=== PATIENT | female | born 1955 | race Caucasian/White ===

== ENCOUNTER 2019-01-11 12:00 | Inpatient (IN) | payer MEDICARE, BC ==
[~2019-01-11] VITALS: Ht 165.1 cm; Wt 68.3 kg
[~2019-01-11 12:00] MED LIST: ASPI-903 PO; SIMV20TA20 ORAL
[2019-01-25] VITALS (17 sets, daily range): BP systolic 129–165; BP diastolic 61–81; PULSE 65–99; RESP 11–19; Ht 165.1 cm; Wt 68.3 kg
[2019-01-25] MEDS ORDERED: LACTATED RINGER'S 1,000 ML IV SCH (06:00)
[2019-01-25] MEDS ORDERED: CEFAZOLIN 2 GM/50 ML (PMX) 50 ML IVPB SCH (06:00)
--- NOTE | 2019-01-25 11:51 | PREAC ---
Date/Time of Note Date/Time of Note DATE: 01/25/19 TIME: 11:50 Anesthesia Eval and Record Evaluation Time Pre-Procedure Interview DATE: 01/25/19 TIME: 11:50 Age 63 Sex female NPO: 8 hrs Preoperative diagnosis cervical ddd Planned procedure c4-7 ACDF Past Medical History Past Medical History: Includes Cardio: Dyslipidemia Surgery & Anesthesia Issues No known issue Meds Anticoagulation: No Beta Luiz within 24 hr: No Reason Beta Luiz not given: Pt. not on B-Luiz Reported Medications Aspirin* (Aspirin* Chew) 81 Mg Tab.chew, 81 MG PO DAILY, TAB.CHEW 01/25/19 Simvastatin (Simvastatin) 20 Mg Tablet, 1 TAB ORAL QHS 01/25/19 Current Medications Lactated Ringer's 1,000 ml @ 0 mls/hr Q0M IV ; Start 01/25/19 at 06:00; Stop 01/25/19 at 19:00 Cefazolin Sodium/ Dextrose 50 ml @ 100 mls/hr PREOP IVPB ; Start 01/25/19 at 06:00; Stop 01/25/19 at 19:00 Meds reviewed: Yes Allergies Coded Allergies: iodine (Verified Allergy, Mild, HIVES, 01/25/19) Sulfa (Sulfonamide Antibiotics) (Verified Allergy, Unknown, HIVES, 01/25/19) Allergies Reviewed: Yes Labs/Studies Labs Reviewed: Reviewed by anesthesiologist test: Negative Studies: ECG Pre-procedure Exam Last vitals Vital Signs Date Temp Pulse Resp B/P (MAP) Pulse Ox O2 O2 Flow FiO2 Time Delivery Rate 01/25/19 98.3 73 18 156/74 96 Room Air 11:17 (101) Airway: Adequate mouth opening, Adequate thyromental dist Mallampati: Mallampati II Teeth: Normal Lung: Normal Heart: Normal ASA Physical Status ASA physical status: 2 Emergency: None Planned Anesthetic General/MAC: ETT, A Line Pre-operative Attestations Prior to commencing anesthesia and surgery, the patient was re-evaluated, there was verification of: *The patient's identity *The results of appropriate recent lab work and preoperative vital signs *The above evaluation not changing prior to induction *Anesthetic plan, risk benefits, alternative and complications discussed with patient/family; questions answered; patient/family understands, accepts and wishes to proceed. DOMINGO ALSTON Jan 25, 2019 11:51
[2019-01-25] MEDS ORDERED: ALBUTEROL 0.083% (NEB) 2.5 MG/3 ML AMP HHN PRN (12:00)
[2019-01-25] MEDS ORDERED: DIPHENHYDRAMINE 50 MG INJ IV PRN ×2 (12:00→12:30)
[2019-01-25] MEDS ORDERED: FENTAnyl 50 MCG/ML VIAL IV PRN ×2 (12:00)
[2019-01-25] MEDS ORDERED: MEPERIDINE 25 MG INJ IV PRN (12:00)
[2019-01-25] MEDS ORDERED: METOCLOPRAMIDE 10 MG INJ IV PRN (12:00)
[2019-01-25] MEDS ORDERED: ONDANSETRON 4 MG INJ IV PRN (12:00)
[2019-01-25] MEDS ORDERED: HYDROmorphONE 1 MG/5 ML IV SYRINGE IV PRN ×3 (12:00)
[2019-01-25] MEDS ORDERED: GLYCOPYRROLATE 0.4 MG INJ ONE (12:00)
[2019-01-25] MEDS ORDERED: GELATIN SIZE 100 SPONGE ONE (12:17)
[2019-01-25] MEDS ORDERED: POLYMYXIN/BACITRACIN 1L IRRIG ONE (12:17)
[2019-01-25] MEDS ORDERED: BUPIVACAINE 0.25%/EPI (SDV) 30 ML INJ ONE (12:18)
[2019-01-25] MEDS ORDERED: THROMBIN 5000 UNIT (RECOTHROM) VIAL ONE (12:18)
--- NOTE | 2019-01-25 12:21 | HPN ---
Date/Time of Note Date/Time of Note DATE: 01/25/19 TIME: 12:20 Interval H&P Admission Note Pt. seen H&P reviewed: No system changes LUIS MANUEL AGEE PA-C Jan 25, 2019 12:21
[2019-01-25] MEDS ORDERED: DIPHENHYDRAMINE 25 MG CAP PO PRN (12:30)
[2019-01-25] MEDS: CEFAZOLIN 1 GM/50 ML (PMX) 50 ML IVPB SCH ×2 (12:30→20:17)
[2019-01-25] MEDS ORDERED: ACETAMINOPHEN 325 MG TAB PO PRN (12:30)
[2019-01-25] MEDS ORDERED: HYDROCODONE/APAP (5/325) TAB PO PRN (12:30)
[2019-01-25] MEDS ORDERED: HYDROmorphONE 0.2 MG/ML PCA IV SCH (12:30)
[2019-01-25] MEDS ORDERED: NALOXONE (0.4 MG/ML) INJ IV PRN (12:30)
[2019-01-25] MEDS ORDERED: CYCLOBENZAPRINE 10 MG TAB PO PRN (12:30)
[2019-01-25] MEDS ORDERED: BISACODYL 10 MG SUPP PR PRN (12:30)
[2019-01-25] MEDS ORDERED: CEPASTAT LOZENGE MT PRN (12:30)
[2019-01-25] MEDS ORDERED: AL HYDROX/MG HYDROX/SIMETH 30 ML CUP PO PRN (12:30)
[2019-01-25] MEDS ORDERED: HYDROmorphONE 0.5 MG/0.5 ML SYG IV PRN (12:30)
[2019-01-25] MEDS ORDERED: FENTAnyl 50 MCG/ML VIAL ONE ×2 (12:40→13:41)
[2019-01-25] MEDS ORDERED: PROPOFOL 20 ML ONE (16:12)
[2019-01-25] MEDS ORDERED: LIDOCAINE 100 MG SYRINGE ONE (16:12)
[2019-01-25] MEDS ORDERED: ROCURONIUM 50 MG INJ ONE (16:12)
[2019-01-25] MEDS ORDERED: SUCCINYLCHOLINE CHLORIDE 100 MG/5 ML SYG IV ONE (16:12)
[2019-01-25] MEDS ORDERED: SUGAMMADEX SODIUM 200 MG/2 ML VIAL IV ONE ×2 (16:12→16:19)
[2019-01-25] MEDS ORDERED: CEFAZOLIN 1 GM INJ ONE (16:12)
--- NOTE | 2019-01-25 16:43 | SIPON ---
Date/Time of Note Date/Time of Note DATE: 01/25/19 TIME: 16:42 Operative Report Preoperative Diagnosis cervical stenosis Postoperative Diagnosis cervical stenosis Operation/Procedure Performed cervical fusion Surgeon see signature line sales service assistant oral Anesthesia: general Estimated blood loss: 50 - 100 ml's Transfusion Required none Specimen disk Grafts/Implants cage and plate Complications none DANIELA TRENT MD Jan 25, 2019 16:43
[2019-01-25] MEDS: D5W-0.45 NACL + KCL 20 MEQ 1,000 ML IV SCH ×2 (18:10→21:45)
--- NOTE | 2019-01-25 18:55 | CONS ---
DATE OF ADMISSION: 01/25/2019 DATE OF CONSULTATION: 01/25/2019 TYPE OF CONSULTATION: Postoperative medical. Thank you very much for allowing me to evaluate this 63-year-old female who just underwent cervical s pine surgery. HISTORICAL EVENTS: As you well know, this patient had a chronic history of neck pain that has been m arkedly worsening and because of continued pain and failure of conservative therapy to allow any reli ef, she elected to proceed with surgery. In recovery, she notes some shoulder pain without substerna l chest discomfort, shortness of breath, nausea, vomiting, abdominal or chest pain. PAST MEDICAL HISTORY: 1. Revealed an old ischemic cerebral infarct as noted by MRI imaging. Carotid ultrasound was normal , undergoing neurologic evaluation preoperatively. 2. History of retinal detachment. 3. Carpal tunnel syndrome. 4. Hyperlipidemia. 5. Total abdominal hysterectomy. ALLERGIES INCLUDE: 1. IODINE. 2. SULFA. CURRENT MEDICATIONS PRIOR TO ADMISSION: 1. Aspirin. 2. Simvastatin. PHYSICAL EXAMINATION: GENERAL: [place] female in no acute distress. VITAL SIGNS: BP 128/80, pulse 72, respirations were 18. She was afebrile. HEENT: Eyes: Extraocular muscles were full. Nose, mouth and throat are normal. NECK: Supple. There was no jugular venous distention, thyroid enlargement. LUNGS: Clear. HEART: Rhythm regular. No murmur. No third or fourth sound. ABDOMEN: Nontender. Liver and spleen were not palpable. No mass or tenderness were noted. EXTREMITIES: No edema. Calves nontender. Pulses are 2+. NEUROLOGIC: No lateralizing motor weakness. IMPRESSION: 1. Stable postoperative. Recommendation is she will follow with you daily and observe for signs and symptoms of thromboembolic disease. 2. Hyperlipidemia. We will continue statin. 3. We will mobilize rapidly as possible. We will follow with you. Dictated By: JAYLON TAYLOR MD MR/NTS Conf#: [id number] DID#: [id number] CC: DANIELA TRENT MD;*EndCC*
--- NOTE | 2019-01-25 19:07 | OPR ---
DATE OF OPERATION: 01/25/2019 PREOPERATIVE DIAGNOSES: C4 to C5, C5 to C6, C6 to C7 cervical disk disease with stenosis and radiculopathy. POSTOPERATIVE DIAGNOSES: C4 to C5, C5 to C6, C6 to C7 cervical disk disease with stenosis and radiculopathy. PROCEDURES: 1. Anterior cervical diskectomy and spinal cord decompression at C4 to C5, C5 to C6, C6 to C7. 2. Partial corpectomy at C4, C5, C6 and C7. 3. Placement of intervertebral mechanical device at C4 to C5, C5 to C6, C6 to C7. 4. Placement of separate anterior hardware. 5. Use of allograft. 6. Use of C-arm fluoroscopy with interpretation without radiologist present. 7. Use of operative microscope. 8. Intraoperative neuromonitoring. IMPLANTS: 1. Neurostructure Cavetto Phusion 5 x 14.5 x 16.5 mm cage at C4 to C5. 2. Nexxt Matrixx cervical cage 6 mm x 14 mm x 16 mm at C5 to C6 and C6 to C7. 3. Biosphere. PRIMARY SURGEON: Oseas Scales MD FUNDING COORDINATOR: Selma Sánchez PA-C NEED FOR DICER OPERATOR: During this spinal surgical procedure, my logistics assistant was used to retract and protect the spinal nerves and dural sac. My logistics assistant also employed the suction catheters to evacuate blood from the surgical field to improve visualization of the neural structures. The logistics assistant was medically necessary to facilitate the completion of the surgery in a safe and expeditious manner. State of [place] regulations, as well as hospital bylaws, preclude the use of non-licensed health care personnel, such as operating room technicians, to perform these functions. FINDINGS: Neuromonitoring at the start of the case showed decreased amplitude at C5 and C6, which improved at the end of the case. Please see the chart for the exact numbers. The patient had cervical disk disease at all 3 levels with osteophytes, resulting in severe stenosis most severe at the C5 to C6 level. ESTIMATED BLOOD LOSS: 40 mL. DRAINS: One. SPECIMENS: C4 to C5, C5 to C6 and C6 to C7 disks. COMPLICATIONS OF PROCEDURES: None. ANESTHESIOLOGIST: Dino Toro MD TYPE OF ANESTHESIA: General. INDICATIONS FOR PROCEDURE: This is a 63-year-old female with cervical disk disease which resulted in stenosis and radiculopathy. She failed nonoperative measures; therefore, I recommended that she undergo the above procedure. Preoperatively, we discussed risks, benefits, alternatives. She understood and wished to proceed. DESCRIPTION OF PROCEDURE IN DETAIL: The patient was identified in the preoperative holding area, given Ancef antibiotic, taken to the operating room, where she was successfully placed under general anesthesia. Neuromonitoring leads were placed. Sequential compressive devices were applied. Richter catheter was introduced. Remote intraoperative neuromonitoring was performed by Dr. Prasad from 11:33 until 16:37 to include SSEP, MEP and EMG performed by Xunlei. THE PATIENT IS ALLERGIC TO IODINE and precautions were taken. The patient was placed in the operative table in supine position. Rolls were placed between the scapular blades and behind the neck. Arms were tucked at the side. Neck was extended and prepped and draped in usual sterile fashion. Left- sided neck incision was made anteriorly. The platysma was incised in line with the skin incision. I then identified an interval between the sternocleidomastoid and strap muscles. I identified the anterior spine. Bent spinal needles were placed into the disk spaces and a lateral film was obtained to confirm the correct levels. Once this was confirmed, I subperiosteally dissected the longus colli musculature. Self-retaining retractors were placed. Anesthesiologist deflated and reinflated the endotracheal cuff. Microscope was brought in. Annulotomy was made at C4 to C5, C5 to C6 and C6 to C7. The patient had significant collapse at these levels with near autofusion and therefore, a partial corpectomy had to be performed. I used a high-speed bur to perform diskectomies with decompression of the spinal cord at all 3 levels with partial corpectomies at C4, C5, C6 and C7, removing at least 50% of the vertebral bodies. I used Kerrison punches to complete the posterior decompression. Once I decompressed out the level, I placed various trials and chose the appropriate graft height. I took a nitinol cage within which I placed allograft and impacted the intervertebral mechanical device into the C4 to C5 level. I then took the titanium cage within which I placed allograft and I impacted intervertebral mechanical device into the C5 to C6 and C6 to C7 levels. Once I completed all 3 levels, I took a separate anterior cervical plate spanning this from C4 to C7, placing 14 mm screws. Once this was done and the screws were locked down, I took AP and lateral images and I was happy with placement of the hardware and alignment of the spine. At this point, all nerve signals returned to normal. Microscope was taken off the field. Hemostasis was achieved. The wound was irrigated. I placed a deep drain and removed the retractors. I closed the platysma with a #2-0 running suture. I then closed subcutaneous tissue with a 3-0 Vicryl stitch. Dermabond and sterile dressings were then applied. The patient was then awakened from anesthesia and taken to the recovery room in stable condition. Lap, sponge, instrument counts were correct x2. There were no apparent complications during the procedure. The patient will be admitted to the [facility] for routine postoperative care to include pain control, neurovascular checks, antibiotics and physical therapy. Dictated By: OSAES SCALES MD BB/NTS Conf#: [id number] DID#: [id number] CC: JAYLON TAYLOR MD;*EndCC* MTDD
[2019-01-25] MEDS: DOCUSATE SODIUM 100 MG CAP PO SCH (20:17)
[2019-01-25] MEDS: ATORVASTATIN 10 MG TAB PO SCH (20:17)
[2019-01-25] MEDS: ONDANSETRON 4 MG INJ IV PRN (21:45)
[2019-01-26 01:02] VITALS: RESP 18
[2019-01-26 01:03] VITALS: RESP 20
[2019-01-26 04:11] VITALS: BP 146/70; PULSE 64; RESP 18
[2019-01-26] MEDS: D5W-0.45 NACL + KCL 20 MEQ 1,000 ML IV SCH ×2 (04:15→18:21)
[2019-01-26] MEDS: CEFAZOLIN 1 GM/50 ML (PMX) 50 ML IVPB SCH (04:15)
[2019-01-26 07:21] VITALS: BP 141/72; PULSE 71; RESP 17
--- NOTE | 2019-01-26 08:33 | CONS ---
Assessment/Plan Assessment/Plan Assessment/Plan (Daily) 1. Post op cx spine surgery, quite stable 2. Hyperlipidemia, statin resumed 3. Labs rev Consultation Date/Type/Reason Admit Date/Time Jan 25, 2019 at 09:47 Initial Consult Date Date/Time of Note DATE: 01/26/19 TIME: 08:32 Detailed Summary Respiratory: No cough, No shortness of breath Cardiovascular: no complaints Gastrointestinal: no complaints Genitourinary: other (gage in place) Musculoskeletal: other (shoulers ache and neck pain is mod) Exam/Review of Systems Exam Vitals Vital Signs Date Temp Pulse Resp B/P (MAP) Pulse Ox O2 O2 Flow FiO2 Time Delivery Rate 01/26/19 98.7 71 17 141/72 97 Nasal 07:21 (95) Cannula 01/26/19 2.0 01:03 Intake and Output 01/25/19 01/25/19 01/26/19 1515:00 23:00 07:00 IntakeIntake Total 1550 ml 1150 ml OutputOutput Total 182 ml 20 ml BalanceBalance 1368 ml 1130 ml Neck: No jvd Respiratory: clear to auscultation Cardiovascular: regular rate and rhythm Gastrointestinal: soft Results Result Diagram: 01/26/19 0426 01/26/19 0426 Results 24hrs Laboratory Tests Test 01/26/19 04:26 White Blood Count 11.3 H Red Blood Count 4.08 L Hemoglobin 12.8 Hematocrit 39.3 Mean Corpuscular Volume 96.3 Mean Corpuscular Hemoglobin 31.4 Mean Corpuscular Hemoglobin Concent 32.6 Red Cell Distribution Width 12.0 Platelet Count 190 Mean Platelet Volume 9.9 Immature Granulocytes % 0.400 Neutrophils % 72.8 Lymphocytes % 17.1 Monocytes % 9.1 Eosinophils % 0.2 Basophils % 0.4 Nucleated Red Blood Cells % 0.0 Immature Granulocytes # 0.050 H Neutrophils # 8.3 H Lymphocytes # 1.9 Monocytes # 1.0 H Eosinophils # 0.0 Basophils # 0.0 Nucleated Red Blood Cells # 0.0 Sodium Level 138 Potassium Level 4.1 Chloride Level 107 Carbon Dioxide Level 26 Anion Gap 5 Blood Urea Nitrogen 9 Creatinine 0.75 Est Glomerular Filtrat Rate mL/min > 60 Glucose Level 137 Calcium Level 8.5 Magnesium Level 2.0 Medications Medication Current Medications Potassium Chloride/Dextrose/ Sod Cl 1,000 ml @ 100 mls/hr Q10H IV Last administered on 01/26/19at 04:15; Admin Dose 100 MLS/HR; Start 01/25/19 at 12:21 Acetaminophen/ Hydrocodone Bitart ([place] (5/325)) 1 tab Q4H PRN PO .PAIN 1-5; Start 01/25/19 at 12:30 Acetaminophen/ Hydrocodone Bitart ([place] (5/325)) 2 tab Q4H PRN PO .PAIN 6-10; Start 01/25/19 at 12:30 Hydromorphone HCl (Dilaudid) 0.2 mg Q1H PRN IV .BREAKTHROUGH PAIN; Start 01/25/19 at 12:30 Ondansetron HCl (Zofran Inj) 4 mg Q6H PRN IV NAUSEA/VOMITING Last administered on 01/25/19at 21:45; Admin Dose 4 MG; Start 01/25/19 at 12:30 Bisacodyl (Dulcolax Supp) 10 mg DAILY PRN [place] .CONSTIPATION; Start 01/25/19 at 12:30 Docusate Sodium (Colace) 100 mg BID PO Last administered on 01/25/19at 20:17; Admin Dose 100 MG; Start 01/25/19 at 21:00 Al Hydrox/Mg Hydrox/Simethicone (Mag-Al Plus) 15 ml Q6H PRN PO .CONSTIPATION/DYSPEPSIA; Start 01/25/19 at 12:30 Acetaminophen (Tylenol Tab) 650 mg Q4H PRN PO BROTHERS OR TEMP GREATER THAN 101.3F; Start 01/25/19 at 12:30 Cyclobenzaprine HCl (Flexeril) 5 mg TID PRN PO .MUSCLE SPASM; Start 01/25/19 at 12:30 Phenol (Cepastat Lozenge) 1 lozenge PRN PRN [place] .SORE THROAT; Start 01/25/19 at 12:30 Diphenhydramine HCl (Benadryl) 25 mg Q6H PRN PO .ITCHING; Start 01/25/19 at 12:30 Diphenhydramine HCl (Benadryl) 25 mg Q6H PRN IV .ITCHING; Start 01/25/19 at 12:30 Naloxone HCl (Narcan) 0.2 mg Q2M PRN IV .RR 8 BREATHS/MIN OR LESS; Start 01/25/19 at 12:30 Hydromorphone HCl (Dilaudid EQUITY HOLDER) EQUITY HOLDER to be started in PACU Q4PCA IV Last admin istered on 01/25/19at 16:40; Admin Dose 6 MG; Start 01/25/19 at 12:30 Miscellaneous Information 1. Hold EQUITY HOLDER at 1,000... EQUITY HOLDER IV ; Start 01/25/19 at 12:30 Atorvastatin Calcium (Lipitor) 10 mg HS PO Last administered on 01/25/19at 20:17; Admin Dose 10 MG; Start 01/25/19 at 21:00 JAYLON TAYLOR MD Jan 26, 2019 08:33
[2019-01-26] MEDS: ONDANSETRON 4 MG INJ IV PRN (09:06)
[2019-01-26] MEDS: DOCUSATE SODIUM 100 MG CAP PO SCH ×2 (09:09→20:42)
[2019-01-26] MEDS: HYDROCODONE/APAP (5/325) TAB PO PRN ×2 (11:24→18:12)
--- NOTE | 2019-01-26 13:51 | PN ---
Date/Time of Note Date/Time of Note DATE: 01/26/19 TIME: 13:50 Assessment/Plan Lines/Catheters IV Catheter Type (from Nrsg): Peripheral IV Richter in Place (from Nrsg): No Assessment/Plan Assessment/Plan POD #1 s/p ACDF doing well ambulate, continue PT pain control routine care consider removing drain tomorrow and d/c afterward Subjective 24 Hr Interval Summary notes improvement in arm pain and BROTHERS not having much neck pain c/o nausea Exam/Review of Systems Vital Signs Vitals Vital Signs Date Temp Pulse Resp B/P (MAP) Pulse Ox O2 O2 Flow FiO2 Time Delivery Rate 01/26/19 17 11:39 01/26/19 Nasal 2.0 09:10 Cannula 01/26/19 98.7 71 141/72 97 07:21 (95) Intake and Output 01/25/19 01/25/19 01/26/19 1515:00 23:00 07:00 IntakeIntake Total 1550 ml 1150 ml OutputOutput Total 182 ml 20 ml BalanceBalance 1368 ml 1130 ml Exam Free Text/Dictation incision c/d/i aox3 exam unchanged nvi drain output 42cc Results Result Diagram: 01/26/19 0426 01/26/19 0426 LUIS MANUEL AGEE PA-C Jan 26, 2019 13:51
[2019-01-26 14:08] VITALS: BP 134/63; PULSE 69; RESP 18
[2019-01-26 20:00] VITALS: BP 139/64; PULSE 92; RESP 18
[2019-01-26] MEDS: ATORVASTATIN 10 MG TAB PO SCH (20:42)
[2019-01-27 02:02] VITALS: BP 153/69; PULSE 86; RESP 18
[2019-01-27 07:54] VITALS: BP 133/68; PULSE 89; RESP 18
--- NOTE | 2019-01-27 08:11 | CONS ---
Assessment/Plan Assessment/Plan Assessment/Plan (Daily) 1. Post op cx spine surgery, very stable 2. Hyperlipidemia 3. Labs rev 4. Can dc per ortho/PT Consultation Date/Type/Reason Admit Date/Time Jan 25, 2019 at 09:47 Initial Consult Date Date/Time of Note DATE: 01/27/19 TIME: 08:10 Detailed Summary Respiratory: No cough, No pleuritic pain, No shortness of breath Cardiovascular: No chest pain, No lightheadedness, No orthopenea Gastrointestinal: No pain, No nausea, No vomiting Genitourinary: no complaints Musculoskeletal: neck pain (is less and can swallow without diff), other (shoulder pain is better bilat) Exam/Review of Systems Exam Vitals Vital Signs Date Temp Pulse Resp B/P (MAP) Pulse Ox O2 O2 Flow FiO2 Time Delivery Rate 01/27/19 98.3 89 18 133/68 98 Room Air 07:54 (89) 01/26/19 2.0 09:10 Intake and Output 01/26/19 01/26/19 01/27/19 1515:00 23:00 07:00 IntakeIntake Total 200 ml 900 ml OutputOutput Total 1300 ml 800 ml BalanceBalance -1100 ml 100 ml Neck: No jvd Respiratory: clear to auscultation Cardiovascular: regular rate and rhythm Gastrointestinal: soft Extremities: No edema, No pitting pedal edema, No tenderness Results Result Diagram: 01/27/19 0427 01/27/19 0427 Results 24hrs Laboratory Tests Test 01/26/19 08:46 01/27/19 04:27 Lab Scanned Report REFERENCE LAB White Blood Count 11.1 H Red Blood Count 4.10 L Hemoglobin 12.8 Hematocrit 39.2 Mean Corpuscular Volume 95.6 Mean Corpuscular Hemoglobin 31.2 Mean Corpuscular Hemoglobin Concent 32.7 Red Cell Distribution Width 11.9 Platelet Count 193 Mean Platelet Volume 9.9 Immature Granulocytes % 0.400 Neutrophils % 71.1 Lymphocytes % 16.0 Monocytes % 11.5 H Eosinophils % 0.6 Basophils % 0.4 Nucleated Red Blood Cells % 0.0 Immature Granulocytes # 0.040 H Neutrophils # 7.9 H Lymphocytes # 1.8 Monocytes # 1.3 H Eosinophils # 0.1 Basophils # 0.0 Nucleated Red Blood Cells # 0.0 Sodium Level 142 Potassium Level 4.1 Chloride Level 108 Carbon Dioxide Level 29 Anion Gap 5 Blood Urea Nitrogen 5 L Creatinine 0.76 Est Glomerular Filtrat Rate mL/min > 60 Glucose Level 112 Calcium Level 8.8 Phosphorus Level 2.9 Magnesium Level 2.1 Medications Medication Current Medications Acetaminophen/ Hydrocodone Bitart ([place] (5/325)) 1 tab Q4H PRN PO .PAIN 1-5 Last administered on 01/26/19at 18:12; Admin Dose 1 TAB; Start 01/25/19 at 12:30 Acetaminophen/ Hydrocodone Bitart ([place] (5/325)) 2 tab Q4H PRN PO .PAIN 6-10; Start 01/25/19 at 12:30 Hydromorphone HCl (Dilaudid) 0.2 mg Q1H PRN IV .BREAKTHROUGH PAIN; Start 01/25/19 at 12:30 Ondansetron HCl (Zofran Inj) 4 mg Q6H PRN IV NAUSEA/VOMITING Last administered on 01/26/19at 09:06; Admin Dose 4 MG; Start 01/25/19 at 12:30 Bisacodyl (Dulcolax Supp) 10 mg DAILY PRN [place] .CONSTIPATION; Start 01/25/19 at 12:30 Docusate Sodium (Colace) 100 mg BID PO Last administered on 01/26/19at 20:42; Admin Dose 100 MG; Start 01/25/19 at 21:00 Al Hydrox/Mg Hydrox/Simethicone (Mag-Al Plus) 15 ml Q6H PRN PO .CONSTIPATION/DYSPEPSIA; Start 01/25/19 at 12:30 Acetaminophen (Tylenol Tab) 650 mg Q4H PRN PO BROTHERS OR TEMP GREATER THAN 101.3F; Start 01/25/19 at 12:30 Cyclobenzaprine HCl (Flexeril) 5 mg TID PRN PO .MUSCLE SPASM; Start 01/25/19 at 12:30 Phenol (Cepastat Lozenge) 1 lozenge PRN PRN [place] .SORE THROAT; Start 01/25/19 at 12:30 Diphenhydramine HCl (Benadryl) 25 mg Q6H PRN PO .ITCHING; Start 01/25/19 at 12:30 Diphenhydramine HCl (Benadryl) 25 mg Q6H PRN IV .ITCHING; Start 01/25/19 at 12:30 Naloxone HCl (Narcan) 0.2 mg Q2M PRN IV .RR 8 BREATHS/MIN OR LESS; Start 01/25/19 at 12:30 Hydromorphone HCl (Dilaudid COURT SUPERVISOR) COURT SUPERVISOR to be started in PACU Q4PCA IV Last administered on 01/25/19at 16:40; Admin Dose 6 MG; Start 01/25/19 at 12:30 Miscellaneous Information 1. Hold COURT SUPERVISOR at 1,000... COURT SUPERVISOR IV ; Start 01/25/19 at 12:30 Atorvastatin Calcium (Lipitor) 10 mg HS PO Last administered on 01/26/19at 20:42; Admin Dose 10 MG; Start 01/25/19 at 21:00 JAYLON TAYLOR MD Jan 27, 2019 08:11
[2019-01-27] MEDS: DOCUSATE SODIUM 100 MG CAP PO SCH (08:36)
[2019-01-27] MEDS: HYDROCODONE/APAP (5/325) TAB PO PRN ×2 (08:37→11:51)
--- NOTE | 2019-01-27 14:30 | DS ---
Date/Time of Note Date/Time of Note DATE: 01/27/19 TIME: 14:29 Discharge Summary Admission/Discharge Info Admit Date/Time Jan 25, 2019 at 09:47 Discharge Date/Time Jan 27, 2019 at 12:00 Discharge Diagnosis Cervical disc disease Patient Condition: Good Procedures Cervical fusion Hospital Course Patient was admitted [facility] the [facility] after undergoing a cervical fusion. Her postoperative course was uncomplicated. By postoperative day 2 she was deemed stable for discharge with follow-up arranged with the undersigned. Home Meds Reported Medications Aspirin* (Aspirin* Chew) 81 Mg Tab.chew, 81 MG PO DAILY, TAB.CHEW 01/25/19 Simvastatin (Simvastatin) 20 Mg Tablet, 1 TAB ORAL QHS 01/25/19 Primary Care Provider Not On Staff Doctor Pending Labs Laboratory Tests Test 01/27/19 04:27 White Blood Count 11.1 10^3/ul (4.8-10.8) Red Blood Count 4.10 10^6/ul (4.20-5.40) Hemoglobin 12.8 g/dl (12.0-16.0) Hematocrit 39.2 % (37.0-47.0) Mean Corpuscular Volume 95.6 fl (82.0-101.0) Mean Corpuscular Hemoglobin 31.2 pg (29.0-33.0) Mean Corpuscular Hemoglobin Concent 32.7 g/dl (32.0-37.0) Red Cell Distribution Width 11.9 % (11.5-14.5) Platelet Count 193 10^3/UL (140-415) Mean Platelet Volume 9.9 fl (7.4-10.4) Immature Granulocytes % 0.400 % (0.001-0.429) Neutrophils % 71.1 % (39.0-77.0) Lymphocytes % 16.0 % (15.0-51.0) Monocytes % 11.5 % (0.0-11.0) Eosinophils % 0.6 % (0.0-7.0) Basophils % 0.4 % (0.0-2.0) Nucleated Red Blood Cells % 0.0 /100WBC (0.0-0.0) Immature Granulocytes # 0.040 10^3/ul (0.0-0.031) Neutrophils # 7.9 10^3/ul (1.6-7.5) Lymphocytes # 1.8 10^3/ul (0.8-2.9) Monocytes # 1.3 10^3/ul (0.3-0.9) Eosinophils # 0.1 10^3/ul (0.0-0.5) Basophils # 0.0 10^3/ul (0.0-0.1) Nucleated Red Blood Cells # 0.0 10^3/ul (0.0-0.0) Sodium Level 142 mmol/L (135-144) Potassium Level 4.1 mmol/L (3.5-5.1) Chloride Level 108 mmol/L (97-110) Carbon Dioxide Level 29 mmol/L (21-31) Anion Gap 5 (5-13) Blood Urea Nitrogen 5 mg/dl (7-20) Creatinine 0.76 mg/dl (0.44-1.00) Est Glomerular Filtrat Rate mL/min > 60 mL/min (>60) Glucose Level 112 mg/dl (70-220) Calcium Level 8.8 mg/dl (8.4-10.2) Phosphorus Level 2.9 mg/dl (2.5-4.9) Magnesium Level 2.1 mg/dl (1.7-2.5) DANIELA TRENT MD Jan 27, 2019 14:30
--- NOTE | 2019-01-29 07:41 | PAC ---
Date/Time of Note Date/Time of Note DATE: 01/29/19 TIME: 07:41 Post-Anesthesia Notes Post-Anesthesia Note Last documented vital signs Vital Signs Date Temp Pulse Resp B/P (MAP) Pulse Ox O2 O2 Flow FiO2 Time Delivery Rate 01/27/19 98.3 89 18 133/68 98 Room Air 07:54 (89) 01/26/19 2.0 09:10 Activity: WNL Respiratory function: WNL Cardiovascular function: WNL Mental status: Baseline Pain reasonably controlled: Yes Hydration appropriate: Yes Nausea/Vomiting absent: Yes DOMINGO ALSTON Jan 29, 2019 07:41
== END 2019-01-27 12:00 | disposition home or self-care (01) | DRG 473 ==
LOC: REC 01-25 09:47 → MS1 01-25 18:00
PROVIDERS: ADMIT Specialist; ATTEND Specialist
PROC: 0RB30ZZ Excision of Cervical Vertebral Disc, Open Approach (ICD-10-PCS; 2019-01-25)
PROC: 01N10ZZ Release Cervical Nerve, Open Approach (ICD-10-PCS; 2019-01-25)
PROC: 4A11X4G Monitoring of Peripheral Nervous Electrical Activity, Intraoperative, External Approach (ICD-10-PCS; 2019-01-25)
PROC: 0RG20A0 Fusion of 2 or more Cervical Vertebral Joints with Interbody Fusion Device, Anterior Approach, Anterior Column, Open Approach (ICD-10-PCS; principal; 2019-01-25 12:00)
DX: M50.121 Cervical disc disorder at C4-C5 level with radiculopathy (principal); M48.02 Spinal stenosis, cervical region; E78.5 Hyperlipidemia, unspecified; Z86.73 Personal history of transient ischemic attack (TIA), and cerebral infarction without residual deficits
CPT/HCPCS: 72050; 80048; 83735; 84100; 85025; 87086; 88307; 97116; 97162; 97530; C1713; J0690; J1170; J2001; J2405; J2765; J3010; J3480